=== PATIENT | male | born 2000 | race African-American/Black ===

== ENCOUNTER 2025-04-23 06:02 | Emergency (ER) | payer SELFPAY ==
[~2025-04-23] VITALS: Ht 167.6 cm; Wt 79.0 kg
[2025-04-23] MEDS ORDERED: MIDAZOLAM HCL 2 MG/2 ML VIAL IM ONE (06:15)
[2025-04-23 06:43] LABS: BASOPHILS % 0.7 % (0.0-2.0); EOSINOPHILS % 1.7 % (0.0-5.0); HEMATOCRIT. 24.4 % (42.0-52.0); HEMOGLOBIN. 7.4 g/dL (14.0-18.0); LYMPHOCYTES % 13.7 % (20.0-50.0); MEAN PLATELET VOLUME 9.4 fl (7.4-10.4); MONOCYTES % 8.9 % (2.0-8.0); NEUTROPHILS % 75.0 % (40.0-76.0); PLATELET 336 x1000/uL (130-400); RED BLOOD CELL COUNT 3.93 mill/uL (4.7-6.1); RED CELL DISTRIBUTION WIDTH 24.2 % (11.6-14.6)
[2025-04-23 06:47] LABS: ADD RBC MORPHOLOGY YES
[2025-04-23 06:52] LABS: CREATININE 0.7 mg/dL (0.6-1.3)
[2025-04-23 06:53] LABS: ETHANOL BLOOD < 10 mg/dL (<10); UREA NITROGEN BLOOD 9 mg/dL (9-23)
[2025-04-23 06:54] LABS: ASPARTATE AMINOTRANSFERASE 16 IU/L (<34)
[2025-04-23 06:55] LABS: BILIRUBIN DIRECT 0.2 mg/dL (<=3.0); BILIRUBIN TOTAL 0.6 mg/dL (0.1-1.0); PROTEIN TOTAL 7.0 g/dL (6.0-8.3)
[2025-04-23 10:00] VITALS: O2SAT 98
[2025-04-23] MEDS: MIDAZOLAM HCL 2 MG/2 ML VIAL IM NR (10:00)
[2025-04-23 11:36] LABS: CLARITY URINE CLEAR (CLEAR); COLOR URINE YELLOW (YELLOW); GLUCOSE URINE NEGATIVE (NEGATIVE); KETONES URINE 4+ (NEGATIVE); LEUKOCYTE ESTERASE URINE NEGATIVE (NEGATIVE); NITRITE URINE NEGATIVE (NEGATIVE); OCCULT BLOOD URINE 2+ (NEGATIVE); PH URINE 5.0 (4.5-8.0); PROTEIN URINE 1+ (NEGATIVE); SPECIFIC GRAVITY URINE 1.025 (1.005-1.030); UROBILINOGEN URINE 0.2 E.U./dL (0.2-1.0)
[2025-04-23 12:04] LABS: *AMPHETAMINES SCREEN URINE PRESUMPTIVE POSITIVE (NEGATIVE); *BARBITURATES SCREEN URINE NEGATIVE (NEGATIVE); *BENZODIAZEPINES SCREEN URINE NEGATIVE (NEGATIVE); *COCAINE SCREEN URINE NEGATIVE (NEGATIVE); CANNABINOID URINE SCREEN PRESUMPTIVE POSITIVE (NEGATIVE); ECSTASY MDMA SCREEN URINE CONF.TEST INDICATED (NEGATIVE); METHADONE URINE SCREEN NEGATIVE (NEGATIVE); OPIATES URINE SCREEN NEGATIVE (NEGATIVE); PHENCYCLIDINE URINE SCREEN NEGATIVE (NEGATIVE)
[2025-04-23 12:54] LABS: SQUAMOUS EPITHELIAL CELL URINE RARE /lpf (RARE/1+)
[2025-04-23 12:55] LABS: BACTERIA URINE TRACE
[2025-04-23 12:56] LABS: MUCUS URINE TRACE /lpf (NONE/TRACE); RBC URINE 0-2 /hpf (0-2)
[2025-04-23 12:57] LABS: WBC URINE 0-2 /hpf (0-2)
[2025-04-23] MEDS: OLANZAPINE 5MG TABLET PO SCH (18:15)
[2025-04-23 20:58] LABS: PLATELET ESTIMATE NORMAL
[2025-04-23 22:00] VITALS: BP 142/92; PULSE 108; RESP 22; TEMP 36.9; O2SAT 100
== END 2025-04-24 05:52 | disposition left against medical advice (07) ==
LOC: ER 06:02
DX: F99 Mental disorder, not otherwise specified (principal); F15.90 Other stimulant use, unspecified, uncomplicated; F20.9 Schizophrenia, unspecified; F31.9 Bipolar disorder, unspecified; D64.9 Anemia, unspecified; Z79.899 Other long term (current) drug therapy; Z20.822 Contact with and (suspected) exposure to COVID-19
CPT/HCPCS: 36415; 80048; 80076; 80305; 80307; 80320; 80329; 81003; 85025; 87426; 93005; 99291; G0480